=== PATIENT | male | born 1990 | race Caucasian/White ===

== ENCOUNTER 2018-02-20 19:27 | Emergency (ER) | payer SELFPAY ==
[~2018-02-20] VITALS: Ht 185.4 cm; Wt 106.6 kg
[2018-02-20 19:28] VITALS: BP 147/93; Ht 185.4 cm; Wt 106.6 kg
== END 2018-02-20 19:58 | disposition left against medical advice (07) ==
LOC: ED 19:27
DX: Z53.21 Procedure and treatment not carried out due to patient leaving prior to being seen by health care provider (principal)